=== PATIENT | male | born 2000 | race African-American/Black ===

== ENCOUNTER 2023-01-30 07:04 | Emergency (ER) | payer OTHER ==
[~2023-01-30] VITALS: Ht 198.1 cm; Wt 74.1 kg
[2023-01-30 08:05] VITALS: BP 128/80
== END 2023-01-30 08:05 | disposition home or self-care (01) ==
LOC: ED 07:04
DX: M54.32 Sciatica, left side (principal); S39.011A Strain of muscle, fascia and tendon of abdomen, initial encounter; Y93.67 Activity, basketball
CPT/HCPCS: 72100; 99283-25